=== PATIENT | female | born 1965 | race Caucasian/White ===

== ENCOUNTER 2017-04-05 14:43 | Day surgery (SDC) | payer OTHER ==
[~2017-04-05] VITALS: Ht 160 cm; Wt 69.7 kg
[2017-04-05 15:35] VITALS: Ht 160 cm; Wt 69.7 kg
[2017-04-05] MEDS ORDERED: NO MEDS. (15:47)
[2017-04-05 16:41] VITALS: BP 110/61; PULSE 64; RESP 18
[2017-04-05] MEDS ORDERED: FENTAnyl 50 MCG/ML VIAL ONE (17:07)
[2017-04-05] MEDS ORDERED: MIDAZOLAM 1 MG/ML 2 ML INJ ONE ×2 (17:07)
--- NOTE | 2017-04-05 17:11 | OPPN ---
Date/Time of Note Date/Time of Note DATE: 04/05/17 TIME: 17:09 Operative Report Preoperative Diagnosis Abdominal pain Positive occult blood in stool Postoperative Diagnosis Gastritis Gastric polyp Right colon polyp Internal hemorrhoids Operation/Procedure Performed Esophagogastroduodenoscopy and biopsy Colonoscopy and biopsy Surgeon see signature line sociology research assistant None Anesthesia: moderate sedation Estimated blood loss: none Transfusion Required none Specimen Gastric mucosal biopsy Gastric polyp biopsy Right colon polyp biopsy Grafts/Implants none Complications none RAMESH BLACKMON MD Apr 05, 2017 17:11
[2017-04-05 17:37] VITALS: BP 105/62; PULSE 48; RESP 16
--- NOTE | 2017-04-05 18:42 | GILP ---
DATE OF PROCEDURE: NAME OF PROCEDURES: 1. Esophagogastroduodenoscopy and biopsy. 2. Colonoscopy and biopsy. SURGEON: Heather Fisher MD PREOPERATIVE DIAGNOSES: 1. Abdominal pain. 2. Positive occult blood in stool. POSTOPERATIVE DIAGNOSES 1. Gastritis. 2. Gastric mucosal biopsies were taken for Helicobacter pylori test. 3. Gastric polyps and biopsies were taken. 4. Colonoscopy all the way to the cecum. 5. Small right colon polyp was removed. 6. Internal hemorrhoids. INDICATION FOR THE PROCEDURE: Ms. Chelsy Perez is a 51-year-old female patient who was no jonathan to have positive occult blood in stool. She also had upper abdominal pain not responding to the rapy. The patient was scheduled for endoscopy and colonoscopy for further evaluation. The procedures and possible complications were well explained to the patient, she understood and con sented to the procedures. DESCRIPTION OF PROCEDURE: Under the influence of fentanyl and Versed, the gastroscope was carefully introduced into the esophagus and under direct vision, it was advanced to the stomach and through t he pylorus into the duodenal bulb and descending duodenum. FINDINGS: ESOPHAGUS: The mucosa was normal. STOMACH: The patient had gastritis. Gastric mucosal biopsies were taken for H. pylori test. The p atient had a small gastric polyp and it was removed using the biopsy forceps. DUODENUM: Normal. The colonoscope was carefully introduced in the rectum and under direct vision, it was advanced all the way to the cecum. FINDINGS: The patient had a small right colon polyp and it was removed using the biopsy forceps. S he had internal hemorrhoids. She tolerated the procedures very well and there was no complication from the procedures. At the en d of the procedures, she was awake with stable vital signs and she was discharged home to the care o f her family. IMPRESSION: Please see postoperative diagnoses. PLAN: 1. Omeprazole 40 mg p.o. q.a.m. 2. Await histopathology reports. 3. Next screening colonoscopy in 10 years. Dictated By: HEATHER COATS/TERENCE Conf#: [id number] DID#: [id number]
== END 2017-04-05 17:40 | disposition home or self-care (01) ==
LOC: GIL 14:43
PROVIDERS: ATTEND Internal Medicine Gastroenterology
DX: K92.1 Melena (principal); K31.7 Polyp of stomach and duodenum; K29.70 Gastritis, unspecified, without bleeding; K63.5 Polyp of colon; K64.8 Other hemorrhoids
CPT/HCPCS: 43239; 45380; 87081; 88305; 88312; J2250; J3010; Z7610

== ENCOUNTER 2018-11-13 05:36 | Inpatient (IN) | payer OTHER ==
[2018-11-10 08:31] VITALS: BMI 27.3
--- NOTE | 2018-11-12 19:11 | PREOPHP ---
DATE OF ADMISSION: 11/13/2018 HISTORY OF PRESENT ILLNESS: This is a 52-year-old female 5, para 3, abortions 2. This patie nt had seen me in 2017 for referral for pelvic prolapse. The patient has been suffering from pelvic pain, pelvic pressure, history of an old fibroid uterus, mixed incontinence with loss of urine with V alsalva maneuver with urgency and constipation. The patient has been seen with the complete uterovag inal prolapse with the cervix at the introitus and she has been offered vaginal hysterectomy, sling a nd a graft. PAST MEDICAL HISTORY: She had a family history for breast, ovarian cancer and endometrial cancer; ot herwise, she had no medical antecedents. SOCIAL HISTORY: She does not drink or smoke. PAST SURGICAL HISTORY: She had a gallbladder removed in 2009. REVIEW OF SYSTEMS: Noncontributory. No history of neurological, orthopedic disease, hematological d isease, endocrinological disease. She has no history of drug addiction. FAMILY HISTORY: Hypertension, breast cancer, ovarian cancer, diabetes, strokes and heart attacks. MEDICATIONS: She is not on any medications at this time. PHYSICAL EXAMINATION: GENERAL APPEARANCE: Good. VITAL SIGNS: Blood pressure of 110/70, pulse is 80, respirations 16. She is 5 feet, 3 inches. She weighs 152. HEAD AND NECK: Normal. BREASTS: Soft, nontender. No masses. CHEST: Clear. HEART: Normal sinus rhythm. LUNGS: Clear. ABDOMEN: Soft, nontender. No masses. GENITALIA: With atrophy. Bladder is very prolapsed grade III. Cervix: Painful bulky at the introi tus. Uterus is about 8 weeks' size and the adnexa are nonpalpable. RECTAL AND EXTREMITIES: Normal. DIAGNOSES: 1. Complete uterovaginal prolapse. 2. Mixed incontinence. 3. Old fibroid. 4. Rectocele. 5. Pelvic pressure. 6. Pelvic pain. PLAN: She is undergoing an A and P repair, sling and a graft. She has been advised of the possible risks and possible complications of the procedure with her alternatives and options. Written informa tion was provided. She had no more questions and agreed to go ahead with the procedure with full und erstanding and no more questions. Dictated By: JESUS ALBERTO ALEXANDER/TERENCE Conf#: [id number] DID#: [id number]
[~2018-11-13] VITALS: Ht 160 cm; Wt 69.9 kg
[2018-11-13] VITALS (24 sets, daily range): BP systolic 95–122; BP diastolic 54–70; PULSE 56–102; RESP 11–18; Ht 160 cm; Wt 69.9 kg
[~2018-11-13 05:36] MED LIST: NO MEDS.
[2018-11-13] MEDS ORDERED: MIDAZOLAM 1 MG/ML 2 ML INJ ONE (06:41)
[2018-11-13] MEDS ORDERED: CEFAZOLIN 1 GM INJ ONE (06:41)
[2018-11-13] MEDS ORDERED: PROPOFOL 20 ML ONE (06:41)
[2018-11-13] MEDS ORDERED: ROCURONIUM 50 MG INJ ONE (06:41)
[2018-11-13] MEDS ORDERED: ONDANSETRON 4 MG INJ ONE (06:41)
[2018-11-13] MEDS ORDERED: KETOROLAC 30 MG INJ ONE (06:41)
--- NOTE | 2018-11-13 06:57 | PREAC ---
Date/Time of Note Date/Time of Note DATE: 11/13/18 TIME: 06:55 Anesthesia Eval and Record Evaluation Time Pre-Procedure Interview DATE: 11/13/18 TIME: 06:55 Age 52 Sex female NPO: 8 hrs Preoperative diagnosis Fibroid Uterus Planned procedure Vaginal Hystrectomy, Possible abdominal Past Medical History Past Medical History: None Surgery & Anesthesia Issues No known issue Meds Anticoagulation: No Beta Diaz within 24 hr: No Reason Beta Diaz not given: Pt. not on B-Diaz Reported Medications [No Meds.] No Conflict Check 04/05/17 Meds reviewed: Yes Allergies Coded Allergies: No Known Drug Allergies (Verified Allergy, Unknown, 11/09/18) Allergies Reviewed: Yes Labs/Studies Labs Reviewed: Reviewed by anesthesiologist test: N/A Pre-procedure Exam Airway: Adequate mouth opening Mallampati: Mallampati II Teeth: Normal Lung: Normal Heart: Normal ASA Physical Status ASA physical status: 2 Emergency: None Planned Anesthetic General/MAC: ETT Pre-operative Attestations Prior to commencing anesthesia and surgery, the patient was re-evaluated, there was verification of: *The patient's identity *The results of appropriate recent lab work and preoperative vital signs *The above evaluation not changing prior to induction *Anesthetic plan, risk benefits, alternative and complications discussed with patient/family; questions answered; patient/family understands, accepts and wishes to proceed. BRITTNEY WONG MD Nov 13, 2018 06:57
[2018-11-13] MEDS ORDERED: BUPIVACAINE 0.25%/EPI (SDV) 30 ML INJ ONE (06:58)
[2018-11-13] MEDS ORDERED: HYDROmorphONE 1 MG/5 ML IV SYRINGE IV PRN (07:00)
[2018-11-13] MEDS ORDERED: ONDANSETRON 4 MG INJ IV PRN (07:00)
[2018-11-13] MEDS ORDERED: FENTAnyl 50 MCG/ML VIAL IV PRN (07:00)
[2018-11-13] MEDS ORDERED: POLYMYXIN/BACITRACIN 1L IRRIG IRR ONE (08:33)
--- NOTE | 2018-11-13 10:24 | PAC ---
Date/Time of Note Date/Time of Note DATE: 11/13/18 TIME: 10:24 Post-Anesthesia Notes Post-Anesthesia Note Last documented vital signs VSS Activity: WNL Respiratory function: WNL Cardiovascular function: WNL Mental status: Baseline Pain reasonably controlled: Yes Hydration appropriate: Yes Nausea/Vomiting absent: Yes BRITTNEY WONG MD Nov 13, 2018 10:24
[2018-11-13] MEDS ORDERED: DIPHENHYDRAMINE 50 MG CAP PO PRN (10:30)
[2018-11-13] MEDS ORDERED: ZOLPIDEM 5 MG TAB PO PRN (10:30)
[2018-11-13] MEDS ORDERED: HYDROCODONE/APAP (5/325) TAB PO PRN ×2 (10:30)
[2018-11-13] MEDS ORDERED: ONDANSETRON INJ 6 MG in DEXTROSE 5% 50 ML IVPB PRN (10:30)
--- NOTE | 2018-11-13 10:32 | SIPON ---
Date/Time of Note Date/Time of Note DATE: 11/13/18 TIME: 10:31 Operative Report Preoperative Diagnosis Uterine prolapse. Fibroid uterus. Mixed incontinence. Pelvic pressure and pelvic pain Rectocele Postoperative Diagnosis Same plus mild rectocele Operation/Procedure Performed Vaginal total hysterectomy. Anterior repair Uptakes sling Ava dermis graft Surgeon see signature line insurance claims assistant dr Joy Anesthesia: general Estimated blood loss: 10 - 50 ml's Transfusion Required none Specimen Uterus Grafts/Implants none Complications none JESUS ALBERTO STALLINGS MD Nov 13, 2018 10:32
[2018-11-13] MEDS: KETOROLAC 30 MG INJ IV SCH ×3 (11:11→21:52)
[2018-11-13] MEDS: LACTATED RINGER'S 1,000 ML IV SCH ×2 (11:12→18:39)
--- NOTE | 2018-11-13 12:20 | OPR ---
DATE OF OPERATION: 11/13/2018 PROCEDURE: Vaginal total hysterectomy, anterior colporrhaphy, Obtryx sling and Durham dermis graft. PREOPERATIVE DIAGNOSES: 1. Uterine prolapse. 2. Fibroid uterus. 3. Mixed incontinence. 4. Pelvic pressure. 5. Pelvic pain, mild rectocele. POSTOPERATIVE DIAGNOSES: 1. Uterine prolapse. 2. Fibroid uterus. 3. Mixed incontinence. 4. Pelvic pressure. 5. Pelvic pain, mild rectocele. SURGEON: Jesus Alberto Mcnamara MD TECHNICAL ACCOUNT REPRESENTATIVE: Memo Joy MD ANESTHESIA: General by Ambrocio Rosales MD DESCRIPTION OF PROCEDURE: The patient was given general anesthesia, placed in the lithotomy position . The perineal and vaginal area were prepped and draped, and the vaginal speculum was applied. The cervix, which was very small and atrophic from previous conization, was held with 2 Sada clamps and injection of Xylocaine and epinephrine was done around the cervicovaginal junction and a circular inc ision was made at the cervicovaginal junction, and the anterior vaginal area was found, to find the a nterior plication of the peritoneum. The posterior area was also cut until we found the posterior cu l-de-sac. The cardinal ligaments and uterosacral ligaments were clamped and cut after the fulguratio n was done with the Voyant bipolar instrument. The uterine vessels were treated the same way and cut . The uterus was inverted and adnexal pedicles involving the tube and ovarian ligament were clamped and cut, and the uterus was removed. Both adnexa were sutured with #1 Vicryl and double suture with the same reinforcement and these stitches were held. The area of the cardinal ligaments in both side s were sutured with #1 Vicryl suture, and the sutures were held. The cavity appears to be stable wit h no active bleeding. The posterior cul-de-sac and posterior vaginal vault were sutured with interru pted sutures with #1 Vicryl. The pursestring suture was used to go around the peritoneum and close t he cavity after trying to see both ovaries and tubes which were very high up in the pelvis and were p alpable to be normal. The cavity was closed with an 0 Vicryl suture and closing the cavity as with p ursestring sutures. The cardinal ligaments and the adnexal pedicles were brought out to the anterior and posterior vaginal mucosa, and the vagina was closed with interrupted sutures with 2-0 Vicryl. T he lifting of the vaginal vault was visualized when we tied the pedicles outside the vaginal mucosa. At this time the Herrera catheter was placed in. A midline incision was made 2 cm below the urethral meatus all the way up to the vaginal cuff, injecting Xylocaine and epinephrine. The separation of th e bladder was done from the anterior vaginal mucosa, and the dissection was done laterally all the wa y to the obturator internal muscle. The area of the entrance for the needle for the sling was locali zed 2 cm below the abductor longus tendon parallel to the clitoris, a rakan was done on the skin. The knife was used to open the skin and the needle was passed through and was reached parallel to the ur ethra. The sling was attached to the needle and then the needle was retrieved back and the sling arm s were passed through the obturator canal. This was done in both sides. A piece of Durham dermis and ACell graft were used to cover the mid urethral area. Fixation was done with a 2-0 Vicryl suture. T he sling was adjusted against these structures, not too tight and the other part of the sling was cov ered up with the rest of the Durham dermis and ACell graft. The vagina was closed vertically with inte rrupted sutures with 2-0 Vicryl after applying Surgicel in both corners of the vagina were a little v enous bleeding was coming from, and there was no active bleeding. The vagina was closed vertically w ith 2-0 Vicryl suture, interrupted sutures and hemostasis was good. Cystoscopy was done after and th e intactness of the bladder was assessed in good shape with no alteration of the anatomy of the bladd er and with good drainage in both ureters. The procedure was finished by replacing and putting a Fol ey catheter as Xeroform gauze was placed in the vagina for pressure and to reposition the vaginal muc david. The posterior repair was not done since the rectocele was very mild and it was not necessary, a nd the patient tolerated the procedure well and left the OR awake and stable. Sponge counts and inst rument counts were correct. Intravenous antibiotics were given for prophylaxis. Blood loss was mini mal and the urine was clear at the end of the procedure. Dictated By: JESUS ALBERTO ALEXANDER/TERENCE Conf#: [id number] DID#: [id number]
[2018-11-13] MEDS: METOCLOPRAMIDE 10 MG TAB PO SCH ×3 (12:33→23:56)
[2018-11-13] MEDS: CEFAZOLIN 1 GM/50 ML (PMX) 50 ML IVPB SCH ×2 (13:52→21:10)
[2018-11-14 00:11] VITALS: BP 100/55; PULSE 68; RESP 18
[2018-11-14] MEDS: LACTATED RINGER'S 1,000 ML IV SCH (03:10)
[2018-11-14] MEDS: KETOROLAC 30 MG INJ IV SCH ×4 (04:39→21:21)
[2018-11-14] MEDS: CEFAZOLIN 1 GM/50 ML (PMX) 50 ML IVPB SCH (06:49)
[2018-11-14] MEDS: METOCLOPRAMIDE 10 MG TAB PO SCH ×4 (06:50→22:59)
[2018-11-14 08:02] VITALS: BP 99/56; PULSE 61; RESP 18
--- NOTE | 2018-11-14 11:14 | PN ---
Date/Time of Note Date/Time of Note DATE: 11/14/18 TIME: 11:11 Assessment/Plan Lines/Catheters IV Catheter Type (from Nrsg): Peripheral IV Herrera in Place (from Nrsg): Yes Subjective 24 Hr Interval Summary Day 1 postop Afebrile Not in pain Herrera catheter and vaginal packing was removed. Patient is passing gases She was explained about the surgery and findings and procedure and she was very happy with IT. We will start walking and bladder training today. Diet is advanced Constitutional: no complaints Feeding: advancing diet Pain Control: mild Detailed Summary Eyes: no complaints ENT: no complaints Respiratory: no complaints Cardiovascular: no complaints Gastrointestinal: no complaints Genitourinary: no complaints Musculoskeletal: no complaints Skin: no complaints Neurologic: no complaints Endocrine: no complaints Lymphatic: no complaints Psychological: no complaints, nl mood/affect Immunologic: no complaints Exam/Review of Systems Vital Signs Vitals Vital Signs Date Temp Pulse Resp B/P (MAP) Pulse Ox O2 O2 Flow FiO2 Time Delivery Rate 11/14/18 98.4 61 18 99/56 (70) 97 08:02 11/13/18 Room Air 14:15 Intake and Output 11/13/18 11/13/18 11/14/18 1515:00 23:00 07:00 IntakeIntake Total 2050 ml 2040 ml 1400 ml OutputOutput Total 670 ml 3300 ml BalanceBalance 1380 ml 2040 ml -1900 ml Exam Constitutional: alert, oriented, well developed Psych: no complaints, nl mood/affect Head: normocephalic, atraumatic Eyes: nl conjunctiva, EOMI, nl lids, nl sclera ENMT: nl external ears & nose, nl lips & teeth, nl nasal mucosa & septum, mucosa pink and moist Neck: supple, non-tender Respiratory: clear to auscultation, normal air movement Cardiovascular: regular rate and rhythm, nl pulses Gastrointestinal: soft, nl liver, spleen, non-tender Musculoskeletal: nl extremities to inspection, nl gait and stance Extremities: normal pulses Neurological: [employer] II-XII intact, nl mental status, nl speech, nl strength Skin: nl turgor, rash or lesions Lymph: nl lymph nodes Results Result Diagram: 11/14/18 0432 11/14/18 0432 JESUS ALBERTO STALLINGS MD Nov 14, 2018 11:13
[2018-11-14 14:52] VITALS: BP 104/54; PULSE 71; RESP 18
[2018-11-14 19:23] VITALS: BP 102/55; PULSE 68; RESP 18
[2018-11-15 01:27] VITALS: BP 94/53; PULSE 64; RESP 16
[2018-11-15] MEDS: KETOROLAC 30 MG INJ IV SCH (03:54)
[2018-11-15] MEDS: METOCLOPRAMIDE 10 MG TAB PO SCH (05:13)
[2018-11-15 08:29] VITALS: BP 92/63; PULSE 62; RESP 18
--- NOTE | 2018-11-15 10:36 | PD.PPDC ---
RISK ADJUSTMENT SPECIALIST Discharge Instruction Condition [id number] Patient Condition: Shrmp2w Good Diet [id number] Diet: Xodbh4e Resume Regular Diet Activity/Restrictions [id number] Activity: Wecfr7l Normal Activity May Shower [id number] Restrictions: Exxys5v No Exercising No Lifting No Driving No Sexual Activity Nothing in the Vagina No [place] No Tampons, douche Follow-up Follow-up with Physician: 1, Week/Weeks Return to clinic for Eldcy0Sl PROM BURN OFF OPERATOR Instructions: [id number] Fever greater than 101 Chills Worsening abdominal pain Excessive Vaginal Bleeding More than 2 pads per hour Unable to tolerate diet JESUS ALBERTO TSALLINGS MD Nov 15, 2018 10:36
--- NOTE | 2018-11-15 10:42 | DS ---
Date/Time of Note Date/Time of Note DATE: 11/15/18 TIME: 10:38 Discharge Summary Admission/Discharge Info Admit Date/Time Nov 13, 2018 at 05:36 Discharge Date/Time November 15, 2018 Discharge Diagnosis Vaginal uterine prolapse, fibroid uterus, cystourethrocele with mixed incontinence and pelvic pain Patient Condition: Good Procedures Vaginal total hysterectomy suburethral sling procedure and sling and graft Hx of Present Illness 52 years old female multigravida abnormal bleeding pelvic pain fibroid uterus and mixed incontinence with urgency and urinary stress incontinence but this has interfered with her activities at home. Patient was advised for a vaginal reconstruction Hospital Course She had a vaginal total hysterectomy with anterior repair and sling and graft. She did very well, was ambulatory the first postop day and tolerating diet. At this time second postoperative day she ambulatory tolerating regular diet with no problems urinating with no residual urine and with a bowel movement pain is controlled with p.o. medications. Patient is discharged with instructions of what to do and not to do at home she was given instructions on how to reach me in case of an emergency . She is to see me in the office in a week She is been given Tylenol 3 and ibuprofen as needed. Instructions were given a 5-day dose and don'ts at home. Her laboratory testing were near normal. Home Meds Reported Medications [No Meds.] No Conflict Check 04/05/17 Follow-up Plan 1 week Primary Care Provider Not On Staff Doctor Time spent on discharge: < 30 minutes JESUS ALBERTO STALLINGS MD Nov 15, 2018 10:42
--- NOTE | 2018-11-16 17:15 | RADRPT ---
Vent Rate: 69 bpm RR Interval: 868 msec NV Interval: 153 msec QRS Duration: 91 msec QT Interval: 383 msec QTC Interval: 411 msec P-R-T [place]: 64 - 64 - 57 degrees Sinus rhythm...normal P axis, V-rate 50- 99 Electronically Signed By: Satish Alaniz
== END 2018-11-15 12:20 | disposition home or self-care (01) | DRG 743 ==
LOC: REC 05:36 → EDSTATUS 07:30 → MS1 11:12
PROVIDERS: ADMIT Obstetrics & Gynecology; ATTEND Obstetrics & Gynecology
PROC: 0JUC0JZ Supplement of Pelvic Region Subcutaneous Tissue and Fascia with Synthetic Substitute, Open Approach (ICD-10-PCS; principal; 2018-11-13 07:30)
PROC: 0UT97ZZ Resection of Uterus, Via Natural or Artificial Opening (ICD-10-PCS; 2018-11-13 07:30)
DX: N81.3 Complete uterovaginal prolapse (principal); N80.0 Endometriosis of uterus; D25.0 Submucous leiomyoma of uterus; D25.2 Subserosal leiomyoma of uterus; N39.46 Mixed incontinence
CPT/HCPCS: 80051; 82565; 84520; 85025; 86850; 86900; 86901; 86920; 87086; 88307; 93005; C1771; J0690; J1885; J2250; J2405; J3010; J7120; Q4166

== ENCOUNTER 2018-11-19 10:31 | Observation (INO) | payer OTHER ==
[~2018-11-19] VITALS: Ht 160 cm; Wt 72.7 kg
[2018-11-19] MEDS ORDERED: SOD CHLORIDE 0.9% 1,000 ML IV STA (10:47)
[2018-11-19] MEDS ORDERED: IODIXANOL LOCM 100 ML BTL ONE (10:56)
[2018-11-19] MEDS ORDERED: SOD CHLORIDE 0.9% 100 ML ONE (10:56)
--- NOTE | 2018-11-19 12:25 | ERD ---
ER Documentation Chief Complaint Chief Complaint HYSTERECTOMY LAST TUESDAY, TODAY WITH HEAVY BLEEDING HPI 53-year-old female who is 5 days postop from a vaginal hysterectomy. The patient states that she has had no pain and no bleeding since the operation but this morning she noted a large amount of blood and clot from her vagina. Patient denies any fevers or chills or significant pain. The bleeding has since slowed. Patient at this time denies any lightheadedness chest pain or shortness of breath. ROS All systems reviewed and are negative except as per history of present illness. Medications Home Meds Discontinued Reported Medications [No Meds.] No Conflict Check 04/05/17 Allergies Allergies: Coded Allergies: No Known Drug Allergies (Verified Allergy, Unknown, 11/09/18) PMhx/Soc History of Surgery: Yes (GALLBLADDER, NOSE SURGERIES) Anesthesia Reaction: No Hx Neurological Disorder: No Hx Respiratory Disorders: No Hx Cardiac Disorders: No Hx Psychiatric Problems: No Hx Miscellaneous Medical Probl: No Hx Alcohol Use: No Hx Substance Use: No Hx Tobacco Use: No Smoking Status: Never smoker FmHx Family History: No diabetes Physical Exam Vitals Vital Signs Date Temp Pulse Resp B/P (MAP) Pulse Ox O2 O2 Flow FiO2 Time Delivery Rate 11/19/18 59 17 95/59 (71) 97 Room Air 12:57 11/19/18 60 17 97/60 (72) 100 Room Air 12:04 11/19/18 98.1 80 18 129/78 99 10:35 (95) Physical Exam General: Well developed, well nourished, no acute distress Head: Normocephalic, atraumatic. Eyes: Pupils equally reactive, EOM intact ENT: Moist mucous membranes Neck: Supple, no lymphadenopathy Respiratory: Lungs clear bilaterally, no distress Cardiovascular: RRR, no murmurs, rubs, or gallops Abdominal: Soft, non-tender, non-distended, no peritoneal signs : [employer] 7 [employer] 8 Teacher external exam reveals no active hemorrhage MSK: No edema, no unilateral swelling, 5/5 strength Neurologic: Alert and oriented, moving all extremities, normal speech, no focal weakness, no cerebellar signs Skin: No rash Psych: Normal mood Result Diagram: 11/19/18 1101 11/19/18 1101 Results 24 hrs Laboratory Tests Test 11/19/18 11:01 White Blood Count 11.1 10^3/ul Red Blood Count 3.87 10^6/ul Hemoglobin 12.1 g/dl Hematocrit 36.8 % Mean Corpuscular Volume 95.1 fl Mean Corpuscular Hemoglobin 31.3 pg Mean Corpuscular Hemoglobin Concent 32.9 g/dl Red Cell Distribution Width 12.2 % Platelet Count 331 10^3/UL Mean Platelet Volume 9.2 fl Immature Granulocytes % 0.400 % Neutrophils % 78.9 % Lymphocytes % 11.9 % Monocytes % 6.6 % Eosinophils % 1.9 % Basophils % 0.3 % Nucleated Red Blood Cells % 0.0 /100WBC Immature Granulocytes # 0.040 10^3/ul Neutrophils # 8.8 10^3/ul Lymphocytes # 1.3 10^3/ul Monocytes # 0.7 10^3/ul Eosinophils # 0.2 10^3/ul Basophils # 0.0 10^3/ul Nucleated Red Blood Cells # 0.0 10^3/ul Prothrombin Time 12.0 Sec Prothrombin Time Ratio 0.9 INR International Normalized Ratio 0.88 Activated Partial Thromboplast Time 31.9 Sec Sodium Level 140 mmol/L Potassium Level 4.5 mmol/L Chloride Level 103 mmol/L Carbon Dioxide Level 29 mmol/L Anion Gap 8 Blood Urea Nitrogen 10 mg/dl Creatinine 0.62 mg/dl Est Glomerular Filtrat Rate mL/min > 60 mL/min Glucose Level 115 mg/dl Calcium Level 9.2 mg/dl Serum HCG, Qualitative NEGATIVE Current Medications Medications Dose Sig/Camila Start Time Status Last (Trade) Ordered Route PRN Stop Time Admin Dose Reason Admin Sodium 1,000 ml @ Q1H STAT 11/19/18 DC 11/19/18 Chloride 1,000 mls/hr IV 10:47 10:47 11/19/18 11:46 IV Flush 10 ml STK-MED 11/19/18 DC (NS 10 ml) ONCE .ROUTE 10:56 11/19/18 10:57 Sodium 100 ml @ ud STK-MED 11/19/18 DC Chloride ONCE .ROUTE 10:56 11/19/18 10:57 Iodixanol 100 ml STK-MED 11/19/18 DC (Visipaque ONCE .ROUTE 10:56 Locm) 11/19/18 10:57 Procedures/MDM EKG, MONITORS, & DIAGNOSTIC IMAGING: CT abdomen and pelvis: IMPRESSION: Post hysterectomy. Packing and fluid within the vagina. No active extravasation. Cholecystectomy. Hepatic cysts. Bibasilar plate-like atelectasis. LAB INTERPRETATION: I reviewed the laboratory testing and it shows [no evidence of acute process] MEDICAL DECISION MAKING: The patient presents to the emergency room with postoperative vaginal bleeding. This is possibly secondary to localize clot that bled and is now resolved. However I cannot rule out postoperative complication and bleeding. CT imaging of the abdomen pelvis would certainly be indicated. Internal exam will be deferred to COMMERCIAL INSTALLER. Patient has no evidence of significant hemorrhage currently. ER COURSE: * CT imaging shows evidence of packing and blood in the vaginal vault. * I discussed the case with the patient's surgeon Dr. Lindsay. She states that if the patient has no persistent bleeding and CT is negative the patient can be safely discharged. However given CT abnormality and evidence of material within the vaginal vault I believe a bedside examination by COMMERCIAL INSTALLER would be appropriate. She is out of town. I have discussed the case with Dr. Parham, on-call laborist for evaluation. * Dr. Parham is currently in the operating room. The primary COMMERCIAL INSTALLER would like Dr. Parham to evaluate the patient. * Patient has some mild spotting but no significant hemorrhage at this time. Borderline has dropped into the 90s but she is otherwise asymptomatic. Continue to monitor. Patient is pending COMMERCIAL INSTALLER evaluation at the time of signout. Patient will be endorsed to the oncoming provider. CONSULTATION: COMMERCIAL INSTALLER as documented above DISPOSITION PLAN: Pending COMMERCIAL INSTALLER evaluation. Departure Diagnosis: Primary Impression: Postoperative vaginal bleeding Condition: Stable GIL GOOD MD Nov 19, 2018 12:25
[2018-11-19] MEDS ORDERED: ACETAMINOPHEN 325 MG TAB PO PRN ×2 (14:00→17:30)
[2018-11-19] MEDS ORDERED: ONDANSETRON 4 MG INJ IV PRN (14:00)
--- NOTE | 2018-11-19 14:07 | HP ---
Date/Time of Note Date/Time of Note DATE: 11/19/18 TIME: 14:04 Assessment/Plan VTE Prophylaxis SCD applied (from Nsg): Yes SCD contraindicated: low risk/ambulating Pharmacological prophylaxis: other (ambulation) Pharm contraindication: low risk/ambulating Lines/Catheters IV Catheter Type (from Nrs): Saline Lock Assessment/Plan Result Diagram: 11/19/18 1101 11/19/18 1101 Results 24hrs Laboratory Tests Test 11/19/18 11:01 White Blood Count 11.1 #H Red Blood Count 3.87 L Hemoglobin 12.1 Hematocrit 36.8 L Mean Corpuscular Volume 95.1 Mean Corpuscular Hemoglobin 31.3 Mean Corpuscular Hemoglobin Concent 32.9 Red Cell Distribution Width 12.2 Platelet Count 331 # Mean Platelet Volume 9.2 Immature Granulocytes % 0.400 Neutrophils % 78.9 H Lymphocytes % 11.9 L Monocytes % 6.6 Eosinophils % 1.9 Basophils % 0.3 Nucleated Red Blood Cells % 0.0 Immature Granulocytes # 0.040 H Neutrophils # 8.8 H Lymphocytes # 1.3 Monocytes # 0.7 Eosinophils # 0.2 Basophils # 0.0 Nucleated Red Blood Cells # 0.0 Prothrombin Time 12.0 Prothrombin Time Ratio 0.9 INR International Normalized Ratio 0.88 Activated Partial Thromboplast Time 31.9 Sodium Level 140 Potassium Level 4.5 Chloride Level 103 Carbon Dioxide Level 29 Anion Gap 8 Blood Urea Nitrogen 10 Creatinine 0.62 Est Glomerular Filtrat Rate mL/min > 60 Glucose Level 115 Calcium Level 9.2 Serum HCG, Qualitative NEGATIVE HPI/ROS Admit Date/Time Admit Date/Time Hx of Present Illness s/p Vaginal total hysterectomy, anterior colporrhaphy, Obtryx sling and [place] dermis graft. With vaginal bleeding at home currently she has only darkish discharge in vaginal vault ROS Constitutional: no complaints Eyes: no complaints ENT: no complaints Respiratory: no complaints Cardiovascular: no complaints Gastrointestinal: no complaints Genitourinary: no complaints Skin: no complaints Neurologic: no complaints Endocrine: no complaints Psychological: no complaints Immunologic: no complaints PMH/Family/Social Past Medical History Medical History: no pertinent history Medications Current Medications Ondansetron HCl (Zofran Inj) 4 mg BRIDGE ORDER PRN IV NAUSEA/VOMITING; Start 11/19/18 at 14:00; Stop 11/20/18 at 13:59 Acetaminophen (Tylenol Tab) 650 mg ER BRIDGE PRN PO .MILD PAIN 1-3 OR TEMP; Start 11/19/18 at 14:00; Stop 11/20/18 at 13:59 Coded Allergies: No Known Drug Allergies (Verified Allergy, Unknown, 11/09/18) Past Surgical History Past Surgical Hx: no surgical history Social History Smoking Status: Never smoker Exam/Review of Systems Vital Signs Vitals Vital Signs Date Temp Pulse Resp B/P (MAP) Pulse Ox O2 O2 Flow FiO2 Time Delivery Rate 11/19/18 59 17 95/59 (71) 97 Room Air 12:57 11/19/18 98.1 10:35 Exam Constitutional: alert Psych: no complaints Head: normocephalic Eyes: nl conjunctiva ENMT: nl external ears & nose Gastrointestinal: soft, non-tender Genitourinary - Female: other (The speculum exam WNL Sutures in place) Musculoskeletal: nl extremities to inspection Extremities: normal pulses JOHN ABEBE M.D. Nov 19, 2018 14:07
[2018-11-19 15:15] VITALS: BP 91/57; PULSE 58; RESP 18; Ht 160 cm; Wt 72.7 kg
[2018-11-19] MEDS ORDERED: HYDROCODONE/APAP (5/325) TAB PO PRN (17:30)
[2018-11-19] MEDS ORDERED: ZOLPIDEM 5 MG TAB PO PRN (17:30)
[2018-11-19 20:32] VITALS: BP 105/60; PULSE 63; RESP 18
[2018-11-20 00:32] VITALS: BP 99/58; PULSE 65; RESP 18
[2018-11-20 02:31] VITALS: BP 102/61; PULSE 67; RESP 20
[2018-11-20 06:30] VITALS: BP 101/51; PULSE 55; RESP 18
[2018-11-20 08:00] VITALS: BP 111/55; PULSE 67; RESP 16
--- NOTE | 2018-11-20 11:30 | PD.PPDC ---
DOCUMENT REVIEWER Discharge Instruction Condition [id number] Patient Condition: Mtfol9t Good Diet [id number] Diet: Zvtgb4c Resume Regular Diet Activity/Restrictions [id number] Activity: [id number] Normal Activity May Shower [id number] Restrictions: [id number] No Exercising No Lifting No Driving No Sexual Activity Nothing in the Vagina No [place] No Tampons, douche Follow-up Follow-up with Physician: 1, Week/Weeks Return to clinic for [id number] COMMUNITY RELATIONS COORDINATOR Instructions: Nogvl0g Fever greater than 101 Chills Worsening abdominal pain Excessive Vaginal Bleeding More than 2 pads per hour Unable to tolerate diet JESUS ALBERTO STALLINGS MD Nov 20, 2018 11:30
--- NOTE | 2018-11-20 11:37 | DS ---
Date/Time of Note Date/Time of Note DATE: 11/20/18 TIME: 11:30 Discharge Summary Admission/Discharge Info Admit Date/Time Nov 19, 2018 at 13:50 Discharge Date/Time November 20, 2018 Discharge Diagnosis Postoperative vaginal bleeding Patient Condition: Good Hx of Present Illness 53 years old female multigravida who is post vaginal total hysterectomy anterior colporrhaphy with a sling and graft 5 days prior to her admission from ER. Patient was seen by Dr. Dias which confirmed there was no active bleeding. She was admitted for observation of vaginal bleeding since the patient stated she had been changing 3 pads in 1 hour. The patient stated also she was getting up every hour the night prior to that to urinate with urinary frequency and tenesmus. A CT scan showed some blood clots in the vagina. The CT scan also mentioned a pack that is possibly the graft since the patient was evaluated and she had no vaginal packing. Hospital Course The patient was observed overnight in the day and she is being discharged now with normal vital signs with no pain no active bleeding and no abdominal signs she is voiding well and she was with bowel movement. She did not change any pads since she came in there was soaked with blood but only serosanguineous liquid. Pelvic examination right now showed. No active bleeding vagina is empty with no clots no bleeding and the stitches were felt intact. She is advised to what to do and not to do at home Antibiotics will be given prophylactically due to the urinary frequency that she mentioned and the bladder surgery. She is instructed how to get to me as an emergency if she happens to have another episode of bleeding. She would be seen in a week in the office. UA and culture will be done now Home Meds Discontinued Reported Medications [No Meds.] No Conflict Check 04/05/17 Primary Care Provider Not On Staff Doctor Time spent on discharge: < 30 minutes Pending Labs Laboratory Tests Test 11/20/18 05:25 White Blood Count 7.7 10^3/ul (4.8-10.8) Red Blood Count 3.29 10^6/ul (4.20-5.40) Hemoglobin 10.1 g/dl (12.0-16.0) Hematocrit 31.5 % (37.0-47.0) Mean Corpuscular Volume 95.7 fl (82.0-101.0) Mean Corpuscular Hemoglobin 30.7 pg (29.0-33.0) Mean Corpuscular Hemoglobin Concent 32.1 g/dl (32.0-37.0) Red Cell Distribution Width 12.1 % (11.5-14.5) Platelet Count 296 10^3/UL (140-415) Mean Platelet Volume 9.2 fl (7.4-10.4) Immature Granulocytes % 0.400 % (0.001-0.429) Neutrophils % 65.2 % (39.0-77.0) Lymphocytes % 23.7 % (15.0-51.0) Monocytes % 6.6 % (0.0-11.0) Eosinophils % 3.6 % (0.0-7.0) Basophils % 0.5 % (0.0-2.0) Nucleated Red Blood Cells % 0.0 /100WBC (0.0-0.0) Immature Granulocytes # 0.030 10^3/ul (0.0-0.031) Neutrophils # 5.0 10^3/ul (1.6-7.5) Lymphocytes # 1.8 10^3/ul (0.8-2.9) Monocytes # 0.5 10^3/ul (0.3-0.9) Eosinophils # 0.3 10^3/ul (0.0-0.5) Basophils # 0.0 10^3/ul (0.0-0.1) Nucleated Red Blood Cells # 0.0 10^3/ul (0.0-0.0) JESUS ALBERTO STALLINGS MD Nov 20, 2018 11:37
== END 2018-11-20 12:10 | disposition home or self-care (01) ==
LOC: E/R 10:31 → PP2 13:50
PROVIDERS: ADMIT Obstetrics & Gynecology; ATTEND Obstetrics & Gynecology
DX: N99.820 Postprocedural hemorrhage of a genitourinary system organ or structure following a genitourinary system procedure (principal)
CPT/HCPCS: 36415; 74177; 80048; 81001; 84703; 85025; 85610; 85730; 86850; 86900; 86901; 87086; 96360; 96361; J7030; Q9967; Z7500; Z7502; Z7610; G0378